=== PATIENT | male | born 2000 | race Caucasian/White ===

== ENCOUNTER 2018-04-09 00:05 | Emergency (ER) | payer BC ==
[~2018-04-09] VITALS: Ht 177.8 cm; Wt 97.7 kg
[2018-04-09 00:10] VITALS: Ht 177.8 cm; Wt 97.7 kg
[2018-04-09] MEDS ORDERED: TYLENOL W/CODEI1 TAB PO (04:19)
[2018-04-09 04:36] VITALS: BP 124/77
== END 2018-04-09 04:36 | disposition home or self-care (01) ==
LOC: D.ER 00:05
DX: S09.90XA Unspecified injury of head, initial encounter (principal); V29.9XXA Motorcycle rider (driver) (passenger) injured in unspecified traffic accident, initial encounter; Y93.89 Activity, other specified; Y92.410 Unspecified street and highway as the place of occurrence of the external cause; T14.8XXA Other injury of unspecified body region, initial encounter; F17.200 Nicotine dependence, unspecified, uncomplicated

== ENCOUNTER 2020-01-10 05:41 | Day surgery (SDC) | payer BC ==
[~2020-01-10] VITALS: Ht 177.8 cm; Wt 91.6 kg
[~2020-01-10 05:41] MED LIST: TYLENOL W/CODEI1 TAB PO
[2020-01-10 06:24] VITALS: BP 113/62; Ht 177.8 cm; Wt 91.6 kg
[2020-01-10 06:34] LABS: CALC OSMOLALITY 275 mosm/kg (275-300); CALCIUM 9.2 mg/dL (8.5-10.1); CARBON DIOXIDE 25.7 mmol/L (21.0-32.0); CHLORIDE - SERUM 104 mmol/L (98-107); CREATININE - SERUM 0.8 mg/dL (0.6-1.3); GLUCOSE 97 mg/dL (74-106); POTASSIUM - SERUM 4.2 mmol/L (3.5-5.1); SODIUM 137 mmol/L (136-145); UREA NITROGEN 18 mg/dL (7-18); eGFR NON AFRICAN AMERICAN > 90 mL/min (90-120)
[2020-01-10 06:44] LABS: BASOPHILS 0.1 % (0-2); EOSINOPHILS 3.6 % (0-7); HEMATOCRIT 44.6 % (42.0-54.0); HEMOGLOBIN 15.1 g/dL (13.5-17.5); IMMATURE GRANULOCYTES 0.2 % (0-5); LYMPHOCYTES 36.6 % (15-50); MCH 29.4 pg (26.0-34.0); MCHC 33.9 g/dL (31.0-37.0); MCV 86.9 fL (80.0-100.0); MEAN PLATELET VOLUME 10.8 fL (7.4-10.4); MONOCYTES 8.1 % (2-11); NEUTROPHILS 51.4 % (40-80); PLATELET COUNT 225 10x3/uL (130-400); RBC 5.13 10x6/uL (4.20-6.10); RDW 12.5 % (11.5-14.5); WBC 10.1 10x3/uL (4.8-10.8)
--- NOTE | 2020-01-10 10:27 | NUR ---
1015-RECD TO ROOM FROM PACU. ALERT. IV PATENT. RESP WITH EASE. DR. GALEANA HERE TO REPORT PROCEDURE AND DISCUSS POST OP CARE. DR. GALEANA CALLS PTS MOTHER.
--- NOTE | 2020-01-20 17:47 | OP ---
PATIENT NAME: YVONNE ANTONIO MEDICAL RECORD: [id number] [facility] DATE: SURGEON: LIAM GALEANA MD DATE OF OPERATION: 01/10/2020 PREOPERATIVE DIAGNOSIS: Perineal abscess, recurrent. 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 PROCEDURE: Anal evaluation under anesthesia with anal fistulotomy and marsupialization of the wound. SURGEON: Liam Galeana MD CAR VARNISHER: None. BLOOD LOSS: Minimal. ANESTHESIA: General. COMPLICATIONS: None. The risks, possible complications and alternatives to the procedure were explained to the patient. He elects to proceed. The discussion specifically included, but was not limited to, bleeding requiring an emergency reoperation, infection, postoperative anal stenosis, postoperative fecal incontinence as well as recurrence of the fistula. OPERATIVE COURSE: The patient was conveyed the operating room electively on 01/10/2020. General anesthesia was induced by the anesthesia staff. The patient placed in the lithotomy position. The perineum and anus were sterilely prepped and draped. I punctured the abscess cavity, which was about 6 cm from the anal verge. I then inserted U-shaped anal retractors within the anus. A combination of hydrogen peroxide and methylene blue was then injected into the abscess cavity and I was able to witness this exiting at the superior aspect of the anus at 2 o'clock. So, the methylene blue was bubbling out at this site and this indicated that there was an intact anal fistula present. I was able to insert a small flexible probe down through the fistula into the anus. Over the fistula, I cauterized with the electrocautery opening up the fistula in its entirety. I then curetted out the fistula tract with a bone curette. Meticulous hemostasis was achieved with electrocautery. I then marsupialized the wound with running locking 3-0 Vicryl Rapide suture. Sterile dressing was applied after I packed Gelfoam into the anus and lower rectum and infiltrated the perianal tissues with combination of steroid preparation and Marcaine. An anesthetic cream was applied to the external hemorrhoids. The patient was then extubated and conveyed to post-anesthesia care unit where he was in stable condition. He is going home with narcotic analgesia as well as a stool softener. I have given him instructions regarding care of his wound. 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
== END 2020-01-10 11:15 | disposition home or self-care (01) ==
LOC: D.OPS 05:41
PROVIDERS: Surgery; ATTEND Surgery
DX: K60.3 Anal fistula (principal)